=== PATIENT | female | born 1955 | race Two or more races ===

== ENCOUNTER 2018-04-15 10:57 | Observation (INO) | payer OTHER ==
--- NOTE | 2018-04-15 11:47 | PDOC ---
History of Present Illness - General Chief Complaint: Nausea/Vomiting Stated Complaint: NAUSEA/VOMITING Time Seen by Provider: 04/15/18 11:46 History Source: Patient Exam Limitations: No Limitations - History of Present Illness Initial Comments: 04/15/18 12:04 CHIEF COMPLAINT: Vomiting HISTORY OF PRESENT ILLNESS: This is a 62-year-old female with a history of non- insulin-dependent diabetes and psoriasis who presents complaining of sudden onset of vomiting, dizziness, and weakness since this morning. She reports that she was in her usual state of health and was seen for a checkup by her PCP on Thursday. All was well at that time and she received a flu vaccine. Today, she has vomited several times and feels dizzy, especially with change in position or standing. She has some headache which she describes as "something wrong in there" pointing to the front of her head. She denies fevers/chills, constipation /diarrhea, dysuria/hematuria, abdominal pain, and sick contacts. She traveled to [facility], returning 2 weeks ago. Vital signs on arrival are notable for heart rate of 98. PCP: Dr. Lucas REVIEW OF SYSTEMS: GENERAL/CONSTITUTIONAL: No fever or chills. Generalized weakness. No weight change. HEAD, EYES, EARS, NOSE AND THROAT: No change in vision. No ear pain or discharge. No sore throat. CARDIOVASCULAR: No chest pain or palpitations. RESPIRATORY: No cough, wheezing, or shortness of breath. GASTROINTESTINAL: Nausea/vomiting. No diarrhea or constipation. GENITOURINARY: No dysuria, frequency, or change in urination. MUSCULOSKELETAL: No joint or muscle swelling or pain. No neck or back pain. SKIN: No rash or easy bruising. NEUROLOGIC: Frontal headache, dizziness (room-spinning). No loss of consciousness or loss of sensation. PSYCHIATRIC: No depression or anxiety. ENDOCRINE: No increased thirst. No abnormal weight change. HEMATOLOGIC/LYMPHATIC: No anemia, easy bleeding, or history of blood clots. ALLERGIC/IMMUNOLOGIC: No hives or skin allergy. No latex allergy. PHYSICAL EXAM: GENERAL: The patient is awake, alert, and fully oriented. Actively vomiting. HEAD: Normal with no signs of trauma. ENT: Pupils equal, round and reactive to light, extraocular movements intact, sclera anicteric, conjunctiva clear. Neck supple. LUNGS: Clear to auscultation bilaterally. Normal excursion. No respiratory distress or use of accessory muscles. CV: RRR, S1/S2, no MRG. Cap refill < 2 sec. ABDOMEN: Soft, non-distended, non-tender. EXTREMITIES: Normal range of motion, no edema. NEUROLOGICAL: Normal speech, normal gait. CN II-XII grossly intact. Grossly negative [place], however patient had difficulty keeping eyes open during maneuver. PSYCH: Normal mood, normal affect. SKIN: Warm, dry, normal turgor, no rashes or lesions noted. Past History - Past Medical History Allergies/Adverse Reactions: Allergies Allergy/AdvReac Type Severity Reaction Status Date / Time No Known Allergies Allergy Verified 04/15/18 10:58 Home Medications: Ambulatory Orders Metformin HCl [Metformin HCl ER] 500 mg PO BID 04/15/18 COPD: No Diabetes: Yes - Immunization History Immunization Up to Date: Yes - Suicide/Smoking/Psychosocial Hx Smoking History: Never smoked *Physical Exam - Vital Signs Last Vital Signs Temp Pulse Resp BP Pulse Ox 97.7 F 98 H 18 154/94 100 04/15/18 10:58 04/15/18 10:58 04/15/18 10:58 04/15/18 10:58 04/15/18 10:58 Heart Score/ECG Review - ECG Intrepretation Comment:: 04/15/18 14:07 Normal sinus rhythm at 69 bpm; no ST or T wave abnormalities noted. ED Treatment Course - LABORATORY CBC & Chemistry Diagram: 04/15/18 11:55 04/15/18 11:55 Medical Decision Making - Medical Decision Making 04/15/18 12:07 A/P: 62-year-old female with nausea/vomiting, generalized weakness, and dizziness/vertigo symptoms. 1. EKG 2. Labs including CBC, CMP, cardiac profile, UA/culture 3. CT brain 4. Zofran 8 mg IV push 5. Normal saline 1 L bolus 6. Reevaluate 04/15/18 12:34 Labs notable for WBC 18.3. UA with 12 WBCs. Patient denies any urinary symptoms and doubt this is the sole cause of her symptoms, but will treat. Patient vomited again in CT. Given Reglan 10mg IVPB and Benadryl 12.5mg IVP. 04/15/18 15:38 Patient remains dizzy with nausea, although not actively vomiting. Will trial PO Meclizine. Given persistent symptoms, will request observation for MRI to r/o posterior circulation CVA as cause of symptoms. Discussed with Dr. Rushing who will consult. Recommends ASA, agrees with MRI. *DC/Admit/Observation/Transfer Diagnosis at time of Disposition: Dizziness Vomiting Qualifiers: Vomiting Intractability: unspecified Nausea presence: with nausea - Discharge Dispostion Condition at time of disposition: Guarded Decision to Admit order: Yes - Referrals - Patient Instructions - Post Discharge Activity
[2018-04-15] MEDS ORDERED: ONDANSETRON 4 MG/2 ML VIAL IVPUSH ONE (11:49)
[2018-04-15] MEDS ORDERED: SODIUM CHLORIDE 1,000 ML IV STA (11:50)
[2018-04-15] MEDS ORDERED: ONDANSETRON 4 MG/2 ML VIAL ONE ×2 (11:52→12:01)
[2018-04-15 12:12] LABS: BASO % 0.2 % (0-2.0); EOS % 0.2 % (0-4.5); HEMATOCRIT 43.5 % (32.4-45.2); HEMOGLOBIN 13.9 GM/dL (10.7-15.3); LYMPH % 10.3 % (8-40); MCH 28.8 pg (25.7-33.7); MEAN CELL VOLUME 89.9 fl (80-96); MEAN PLT VOLUME 7.8 fl (7.5-11.1); MONO % 2.5 % (3.8-10.2); NEUT % 86.8 % (42.8-82.8); PLATELET COUNT 387 K/MM3 (134-434); RBC 4.84 M/mm3 (3.60-5.2); RDW 13.5 % (11.6-15.6); WHITE BLOOD COUNT 18.3 K/mm3 (4.0-10.0)
[2018-04-15 12:48] LABS: ALBUMIN 4.3 g/dl (3.4-5.0); ALK PHOS 83 U/L (45-117); ANION GAP 13 MMOL/L (8-16); BILIRUBIN,TOTAL 0.5 mg/dL (0.2-1); BLOOD UREA NITROGEN 12 mg/dL (7-18); CALCIUM 9.8 mg/dL (8.5-10.1); CHLORIDE 106 mmol/L (98-107); CO2 22 mmol/L (21-32); CREATININE 0.7 mg/dL (0.55-1.3); GLUCOSE,RANDOM 144 mg/dL (74-106); POTASSIUM 3.9 mmol/L (3.5-5.1); SGOT/AST 29 U/L (15-37); SGPT/ALT 25 U/L (13-61); SODIUM 142 mmol/L (136-145); TOT PROT 8.2 g/dl (6.4-8.2)
[2018-04-15] MEDS ORDERED: METOCLOPRAMIDE HCL INJECTION 10 MG/2 ML VIAL IVPUSH ONE (14:00)
[2018-04-15] MEDS ORDERED: METOCLOPRAMIDE HCL INJECTION 10 MG/2 ML VIAL ONE (14:02)
[2018-04-15] MEDS ORDERED: MECLIZINE HCL 25 MG TABLET (FP) PO ONE (14:31)
[2018-04-15 14:43] LABS: URINE APPEARANCE CLEAR; URINE BILIRUBIN NEGATIVE (<2.0 mg/dL); URINE COLOR YELLOW; URINE GLUCOSE (UA) 1+ (NEGATIVE); URINE KETONE 2+ (NEGATIVE); URINE LEUK ESTERASE 2+ (NEGATIVE); URINE NITRITE NEGATIVE (NEGATIVE); URINE PROTEIN NEGATIVE (NEGATIVE); URINE UROBILINOGEN NEGATIVE mg/dL (0.2-1.0)
[2018-04-15 15:09] LABS: EPI CELLS RARE /HPF (FEW); URINE MUCUS RARE
[2018-04-15] MEDS ORDERED: MECLIZINE HCL 25 MG TABLET (FP) ONE (15:32)
[2018-04-15] MEDS ORDERED: CEFTRIAXONE 1 GM in DEXTROSE 5%-WATER - 100 ML IVPB ONE (15:33)
[2018-04-15] MEDS ORDERED: CEFTRIAXONE 1 GM/50 ML BAG ONE (15:35)
--- NOTE | 2018-04-15 15:36 | EKG ---
Test Reason : Blood Pressure : / mmHG Vent. Rate : 069 BPM Atrial Rate : 069 BPM P-R Int : 162 ms QRS Dur : 084 ms QT Int : 452 ms P-R-T Axes : 072 018 053 degrees QTc Int : 484 ms NORMAL SINUS RHYTHM CANNOT RULE OUT ANTERIOR INFARCT , AGE UNDETERMINED ABNORMAL ECG NO PREVIOUS ECGS AVAILABLE Confirmed by ALE SUNG MD ([id number]) on 04/15/2018 3:36:27 PM Referred By: Confirmed By:ALE SUNG MD
[2018-04-15] MEDS ORDERED: ASPIRIN 325 MG TABLET PO ONE (16:22)
[2018-04-15] MEDS ORDERED: ASPIRIN 325 MG TABLET ONE (16:49)
--- NOTE | 2018-04-15 18:39 | PN ---
Teaching Attending Note Name of Resident: Claritza Warren ATTENDING PHYSICIAN STATEMENT I saw and evaluated the patient. I reviewed the resident's note and discussed the case with the resident. I agree with the resident's findings and plan as documented with exceptions below. SUBJECTIVE: 62 yof with PMhx of NIDDM, psoriasis, had a flu vaccine on 04/13, yesterday reports having off and on 'funny feeling' in her head all day, today woke up well in her usual state of health, around 10 AM had multiple episodes of non bloody vomitus associated with funny feeling in her head. Denies any weakness, visual or speech disturbances. Symptoms fully resolved after medications in the ED, currently asymptomatic 12 point ROS done neg currently. No recent URI like illness or nausea, vomiting or decreased po intake. OBJECTIVE: Vital Signs Period Temp Pulse Resp BP Sys/Hodges Pulse Ox Last 24 Hr 97.7 F 75-98 -18 121-154/66-94 99-100 Intake & Output 04/12/18 04/13/18 04/14/18 04/15/18 23:59 23:59 23:59 23:59 Weight 125 lb GENERAL: Awake, alert, and fully oriented, in no acute distress. HEAD: Normal with no signs of trauma. EYES: Pupils equal, round and reactive to light, extraocular movements intact, sclera anicteric, conjunctiva clear. No lid lag. EARS, NOSE, THROAT: Ears normal, nares patent, oropharynx clear without exudates. Moist mucous membranes. NECK: Normal range of motion, supple without lymphadenopathy, JVD, or masses. LUNGS: Breath sounds equal, clear to auscultation bilaterally. No wheezes, and no crackles. No accessory muscle use. HEART: Regular rate and rhythm, normal S1 and S2 without murmur, rub or gallop. ABDOMEN: Soft, nontender, not distended, normoactive bowel sounds, no guarding, no rebound, no masses. No hepatomegaly or splenomegaly. MUSCULOSKELETAL: Normal range of motion at all joints. No bony deformities or tenderness. No CVA tenderness. UPPER EXTREMITIES: 2+ pulses, warm, well-perfused. No cyanosis. No clubbing. No peripheral edema. LOWER EXTREMITIES: 2+ pulses, warm, well-perfused. No calf tenderness. No peripheral edema. NEUROLOGICAL: Cranial nerves II-XII intact. Normal speech. Normal gait. AAOx3, PERRL, EOMI, power 5/5 sensation intact and symmetric to light touch, neg finger nose test, gait WNL, neg Rhomberg's sign, toes down going, DTR bilaterally symmetric PSYCHIATRIC: Cooperative. Good eye contact. Appropriate mood and affect. SKIN: Warm, dry, normal turgor, no rashes or lesions noted, normal capillary refill. Home Medications Medication Instructions Recorded Metformin HCl [Metformin HCl ER] 500 mg PO BID 04/15/18 Active Medications Enoxaparin Sodium (Lovenox -) 40 mg SQ DAILY J[facility] Laboratory Results - last 24 hr 04/15/18 04/15/18 04/15/18 11:55 11:55 14:22 WBC 18.3 H RBC 4.84 Hgb 13.9 Hct 43.5 MCV 89.9 MCH 28.8 MCHC 32.0 RDW 13.5 Plt Count 387 MPV 7.8 Absolute Neuts (auto) 15.9 H Neutrophils % 86.8 H Lymphocytes % 10.3 Monocytes % 2.5 L Eosinophils % 0.2 Basophils % 0.2 Nucleated RBC % 0 Sodium 142 Potassium 3.9 Chloride 106 Carbon Dioxide 22 Anion Gap 13 BUN 12 Creatinine 0.7 Creat Clearance w eGFR > 60 Random Glucose 144 H Calcium 9.8 Magnesium 2.0 Total Bilirubin 0.5 AST 29 ALT 25 Alkaline Phosphatase 83 Creatine Kinase 202 H Creatine Kinase Index 0.7 CK-MB (CK-2) 1.5 Troponin I < 0.02 Total Protein 8.2 Albumin 4.3 Urine Color Yellow Urine Appearance Clear Urine pH 6.0 Ur Specific [place] 1.015 Urine Protein Negative Urine Glucose (UA) 1+ H Urine Ketones 2+ H Urine Blood Negative Urine Nitrite Negative Urine Bilirubin Negative Urine Urobilinogen Negative Ur Leukocyte Esterase 2+ H Urine WBC (Auto) 12 Urine RBC (Auto) 1 Ur Epithelial Cells Rare Urine Mucus Rare CT brain - neg for acute process EKG NSR 69, T inversion in V1, no acute ST-T changes ASSESSMENT AND PLAN: 62 yof with acute onset of nausea, vomitting, ?vertigo/dizziness, now resolved. -Vomiting/?vertigo/?unsteady gait, BPPV, r/o posterior circulation TIA vs CVA -NIDDM -Psoriasis Plan; Symptoms fully resolved, neuro exam non concerning. Cannot r/o posterior circulation event. neurology consult. Neuro checks. MRI/MRA brain ASA/statin. Check lipid panel. Meclizine,reglan prn Gentle hydration PT eval. Hold metformin ISS, diabetic diet Dispo pending above w/u. d/c in 24 hours if no new concerns. Plan discussed with patient in detail, all questions answered. total admit time 55 min.
[2018-04-15] MEDS ORDERED: MECLIZINE HCL 25 MG TABLET (FP) PO PRN (19:19)
[2018-04-15] MEDS ORDERED: ACETAMINOPHEN 325 MG TABLET (FP) PO PRN (19:21)
[2018-04-15] MEDS ORDERED: SODIUM CHLORIDE 1,000 ML IV SCH (19:30)
[2018-04-15] MEDS ORDERED: ATORVASTATIN CA 40 MG TABLET (FP) PO ONE (19:30)
--- NOTE | 2018-04-15 20:17 | HP ---
CHIEF COMPLAINT: Vomiting, Dizziness PCP: Dr. Blackwell HISTORY OF PRESENT ILLNESS: 62 y/o F with PMHx of NIDDM, HLD and Psoriasis presents to [facility] after 8 episodes of Vomiting. Patient says this past Thursday (04/13) she received a flu shot at her PCPs office after which she started to feel something wasnt right in her head. She describes this feeling as a coming and going tingling sensation that spreads from the midline to approx. 2 inches laterally on the left side. This morning, she woke up and did her normal activities and at 10am, she vomited. Since then, she has had 8 episodes of NBNB vomiting prompting her to visit the ED. This is the first time she has had so many vomiting episodes all together. She additionally feels "Off balance" and Chills. Of Note, 2 weeks ago, she returned from a [facility] [place] [facility] she was complaining of some upper back pain that has resolved with motrin. She denies any recent trauma, medication changes, decreased PO intake, decreased urine output or sick contacts. Denies any fevers, chest pain, SOB, nausea vomiting, diarrhea, constipation. Patient works as a house keeper and denies any new cleaning chemicals or detergents. ER course was notable for: (1) Neurology Consult (2) MeclizineThomas Zofran (3) Head CT Recent Travel: PAST MEDICAL HISTORY: NIDDM HLD Psoriasis PAST SURGICAL HISTORY: Nodule removed in 2010 (Possibly thyroid or parathyroid for producing too much calcium as per patient) Cyst removal in 1987 Social History: Smoking: Denies Alcohol: Socially Drugs: Denies Family History: Father: DM, HLD, HTN Mother: DM, HLD, HTN Allergies No Known Allergies Allergy (Verified 04/15/18 10:58) HOME MEDICATIONS: Home Medications Medication Instructions Recorded Metformin HCl [Metformin HCl ER] 500 mg PO BID 04/15/18 REVIEW OF SYSTEMS Per HPI PHYSICAL EXAMINATION Vital Signs - 24 hr 04/15/18 04/15/18 04/15/18 10:58 14:27 16:33 Temperature 97.7 F Pulse Rate 98 H Pulse Rate [ 75 Right] Respiratory 18 17 Rate Blood Pressure 154/94 Blood Pressure 121/66 [Right Arm] O2 Sat by Pulse 100 99 99 Oximetry (%) GENERAL: A&Ox3, NAD HEAD: NCAT EYES: PERRL, EOMI, Wearing glasses EARS, NOSE, THROAT: Oropharynx clear without exudates. Moist mucous membranes. NECK: Normal ROM, No JVD LUNGS: Breath sounds equal, clear to auscultation bilaterally. No wheezes HEART: Regular rate and rhythm, normal S1 and S2 without murmur ABDOMEN: Soft, nontender, not distended, + bowel sounds, no guarding MUSCULOSKELETAL: Normal ROM at all joints. No CVA tenderness. EXTREMITIES: 2+ pulses, No calf tenderness. No peripheral edema. NEUROLOGICAL: Cranial nerves II-XII intact. Normal speech. Normal gait. 5/5 Muscle strength to UE Abduction, Elbow Flexion/extension, Hand hot bread baker, Hip Flexion /extension, Dorsiflexion, Plantarflexion. C5-T1 and L4-S1 Gross sensation intact b/l. Negative Finger to nose test, Negative heel to benedict, Negative Rombergs sign. 2+ Patellar reflex b/l. PSYCHIATRIC: Cooperative. Good eye contact. Appropriate mood and affect. SKIN: Warm, dry, no rashes or lesions noted, normal capillary refill. Laboratory Results - last 24 hr 04/15/18 04/15/18 04/15/18 11:55 11:55 14:22 WBC 18.3 H RBC 4.84 Hgb 13.9 Hct 43.5 MCV 89.9 MCH 28.8 MCHC 32.0 RDW 13.5 Plt Count 387 MPV 7.8 Absolute Neuts (auto) 15.9 H Neutrophils % 86.8 H Lymphocytes % 10.3 Monocytes % 2.5 L Eosinophils % 0.2 Basophils % 0.2 Nucleated RBC % 0 Sodium 142 Potassium 3.9 Chloride 106 Carbon Dioxide 22 Anion Gap 13 BUN 12 Creatinine 0.7 Creat Clearance w eGFR > 60 Random Glucose 144 H Calcium 9.8 Magnesium 2.0 Total Bilirubin 0.5 AST 29 ALT 25 Alkaline Phosphatase 83 Creatine Kinase 202 H Creatine Kinase Index 0.7 CK-MB (CK-2) 1.5 Troponin I < 0.02 Total Protein 8.2 Albumin 4.3 Urine Color Yellow Urine Appearance Clear Urine pH 6.0 Ur Specific [place] 1.015 Urine Protein Negative Urine Glucose (UA) 1+ H Urine Ketones 2+ H Urine Blood Negative Urine Nitrite Negative Urine Bilirubin Negative Urine Urobilinogen Negative Ur Leukocyte Esterase 2+ H Urine WBC (Auto) 12 Urine RBC (Auto) 1 Ur Epithelial Cells Rare Urine Mucus Rare Active Medications Acetaminophen (Tylenol -) 650 mg PO Q6H PRN PRN Reason: HEADACHE Aspirin (Asa -) 325 mg PO DAILY JOS[facility] Enoxaparin Sodium (Lovenox -) 40 mg SQ DAILY JOS[facility] Sodium Chloride (Normal Saline -) 1,000 mls @ 75 mls/hr IV ASDIR [facility] Insulin Aspart (Novolog Vial Sliding Scale -) 1 vial SQ ACHS [facility]; Protocol Meclizine HCl (Antivert -) 25 mg PO TID PRN PRN Reason: VERTIGO IMAGING: -Head CT Without contrast: Mild volume loss without evidence of acute intracranial pathology. ASSESSMENT/PLAN: 62 y/o F with PMHx of NIDDM, HLD and Psoriasis presents to [facility] after 8 episodes of Vomiting will be observed on Tele to r/o TIA 1. Vomiting + Dizziness -R/O TIA/CVA, Vertigo -Symptoms resolved during my interview after ED Course, Neurological exam unremarkable -Neurology (Dr. Peters) Consulted -Neurochecks Q4H -Head CT noted Above -Carotid Doppler, Echo, Brain MRI/MRA ordered -Lipid Panel, TSH ordered -Lipitor, ASA Ordered -Meclizine PRN for Vertigo -IV NS @ 75 mls/hr -Physical therapy requested 2. NIDDM -Hold Oral Hypoglycemics -ISS BGMs ACHS -A1c pending 3. FEN -IV NS @ 75 mls/hr -Lytes wnl -Low salt, low cholesterol, diabetic Diet 4. PPx -DVT: Lovenox SQ Daily Dispo: Tele Obs Visit type - Emergency Visit Emergency Visit: Yes ED Registration Date: 04/15/18 Care time: The patient presented to the Emergency Department on the above date and was hospitalized for further evaluation of their emergent condition. - New Patient This patient is new to me today: Yes Date on this admission: 04/15/18 - Critical Care Critical Care patient: No
[2018-04-15] MEDS: INSULIN SLIDING SCALE (NOVOLOG) 1 VIAL SQ SCH (21:27)
[2018-04-15] MEDS ORDERED: ATORVASTATIN CA 40 MG TABLET (FP) ONE ×2 (21:49→21:52)
[2018-04-15 23:19] VITALS: BMI 22.8
[2018-04-16] MEDS: INSULIN SLIDING SCALE (NOVOLOG) 1 VIAL SQ SCH ×2 (06:20→11:24)
[2018-04-16 07:08] LABS: BASO % 0.5 % (0-2.0); EOS % 0.8 % (0-4.5); HEMATOCRIT 35.2 % (32.4-45.2); HEMOGLOBIN 11.5 GM/dL (10.7-15.3); LYMPH % 21.5 % (8-40); MCHC 32.7 g/dl (32.0-36.0); MEAN CELL VOLUME 88.7 fl (80-96); MEAN PLT VOLUME 7.6 fl (7.5-11.1); MONO % 6.9 % (3.8-10.2); NEUT % 70.3 % (42.8-82.8); PLATELET COUNT 335 K/MM3 (134-434); RBC 3.97 M/mm3 (3.60-5.2); RDW 13.7 % (11.6-15.6); WHITE BLOOD COUNT 7.7 K/mm3 (4.0-10.0)
[2018-04-16 08:26] LABS: ALBUMIN 3.1 g/dl (3.4-5.0); ALK PHOS 58 U/L (45-117); ANION GAP 8 MMOL/L (8-16); BILIRUBIN,TOTAL 0.5 mg/dL (0.2-1); BLOOD UREA NITROGEN 12 mg/dL (7-18); CALCIUM 8.2 mg/dL (8.5-10.1); CHLORIDE 111 mmol/L (98-107); CO2 25 mmol/L (21-32); CREATININE 0.6 mg/dL (0.55-1.3); GLUCOSE,RANDOM 117 mg/dL (74-106); MAGNESIUM 2.2 mg/dL (1.8-2.4); PHOSPHOROUS 3.7 mg/dL (2.5-4.9); POTASSIUM 3.8 mmol/L (3.5-5.1); SGOT/AST 16 U/L (15-37); SGPT/ALT 19 U/L (13-61); SODIUM 143 mmol/L (136-145); TOT PROT 6.1 g/dl (6.4-8.2)
--- NOTE | 2018-04-16 09:12 | CONSULT ---
Consult - text type - Consultation Consultation Note: Neurology CHIEF COMPLAINT: Vomiting, Dizziness PCP: Dr. Blackwell HISTORY OF PRESENT ILLNESS: 62 y/o F with PMHx of NIDDM, HLD and Psoriasis presented to [facility] after multiple episodes of reported vomiting. Patient says this past Thursday (04/13) she received a flu shot at her PCPs office after which she started to feel something wasnt right in her head. She described intermittent tingling sensation that spreads from the midline to approx. 2 inches laterally on the left side. Morning of admission, she woke up and did her normal activities and at 10am, she vomited. After that, she has had 8 episodes of NBNB vomiting prompting her to visit the ED. She additionally felt "Off balance" and Chills. Of Note, 2 weeks ago, she returned from a 1 week trip to [facility] after which she was complaining of some upper back pain that has resolved with motrin. She denies any recent trauma, medication changes, decreased PO intake, decreased urine output or sick contacts. Denied any fevers, chest pain, SOB, nausea vomiting, diarrhea, constipation. She completed CT head which did not show acute changes. Carotid doppler completed and without HD significant stenosis. MRI brain completed awaiting report, does not appear to have infarct from my viewing. Patient reports feeling at baseline and much better with IV fluids overnight. No focal deficits noted. Recent Travel: PAST MEDICAL HISTORY: NIDDM HLD Psoriasis PAST SURGICAL HISTORY: Nodule removed in 2010 (Possibly thyroid or parathyroid for producing too much calcium as per patient) Cyst removal in 1987 Social History: Smoking: Denies Alcohol: Socially Drugs: Denies Family History: Father: DM, HLD, HTN Mother: DM, HLD, HTN Allergies No Known Allergies Allergy (Verified 04/15/18 10:58) HOME MEDICATIONS: Home Medications Medication Instructions Recorded Metformin HCl [Metformin HCl ER] 500 mg PO BID 04/15/18 REVIEW OF SYSTEMS Negative except Per HPI PHYSICAL EXAMINATION Vital Signs Period Temp Pulse Resp BP Sys/Hodges Pulse Ox Last 24 Hr 97.3 F-97.9 F 63-98 17-20 102-154/56-94 99-100 GENERAL: A&Ox3, NAD HEAD: NCAT EYES: PERRL, EOMI, Wearing glasses EARS, NOSE, THROAT: Oropharynx clear without exudates. Moist mucous membranes. NECK: Normal ROM, No JVD LUNGS: Breath sounds equal, clear to auscultation bilaterally. No wheezes HEART: Regular rate and rhythm, normal S1 and S2 without murmur ABDOMEN: Soft, nontender, not distended, + bowel sounds, no guarding MUSCULOSKELETAL: Normal ROM at all joints. No CVA tenderness. EXTREMITIES: 2+ pulses, No calf tenderness. No peripheral edema. NEUROLOGICAL: Cranial nerves II-XII intact. Normal speech, sensory intact, finger to nose normal, no dysmetria PSYCHIATRIC: Cooperative. Good eye contact. Appropriate mood and affect. SKIN: Warm, dry, no rashes or lesions noted, normal capillary refill. CBCD WBC 7.7 K/mm3 (4.0-10.0) 04/16/18 05:55 RBC 3.97 M/mm3 (3.60-5.2) 04/16/18 05:55 Hgb 11.5 GM/dL (10.7-15.3) 04/16/18 05:55 Hct 35.2 % (32.4-45.2) D 04/16/18 05:55 MCV 88.7 fl (80-96) 04/16/18 05:55 MCHC 32.7 g/dl (32.0-36.0) 04/16/18 05:55 RDW 13.7 % (11.6-15.6) 04/16/18 05:55 Plt Count 335 K/MM3 (134-434) 04/16/18 05:55 MPV 7.6 fl (7.5-11.1) 04/16/18 05:55 CMP Sodium 143 mmol/L (136-145) 04/16/18 05:55 Potassium 3.8 mmol/L (3.5-5.1) 04/16/18 05:55 Chloride 111 mmol/L (98-107) H 04/16/18 05:55 Carbon Dioxide 25 mmol/L (21-32) 04/16/18 05:55 Anion Gap 8 MMOL/L (8-16) 04/16/18 05:55 BUN 12 mg/dL (7-18) 04/16/18 05:55 Creatinine 0.6 mg/dL (0.55-1.3) 04/16/18 05:55 Creat Clearance w eGFR > 60 (>60) 04/16/18 05:55 Random Glucose 117 mg/dL (74-106) H 04/16/18 05:55 Calcium 8.2 mg/dL (8.5-10.1) L 04/16/18 05:55 Total Bilirubin 0.5 mg/dL (0.2-1) 04/16/18 05:55 AST 16 U/L (15-37) 04/16/18 05:55 ALT 19 U/L (13-61) 04/16/18 05:55 Alkaline Phosphatase 58 U/L (45-117) 04/16/18 05:55 Total Protein 6.1 g/dl (6.4-8.2) L 04/16/18 05:55 Albumin 3.1 g/dl (3.4-5.0) L 04/16/18 05:55 CARDIAC ENZYMES Creatine Kinase 202 IU/L (26-192) H 04/15/18 11:55 Troponin I < 0.02 ng/ml (0.00-0.05) 04/15/18 11:55 Active Medications Acetaminophen (Tylenol -) 650 mg PO Q6H PRN PRN Reason: HEADACHE Aspirin (Asa -) 325 mg PO DAILY [facility] Atorvastatin Calcium (Lipitor -) 40 mg PO HS JOSH Enoxaparin Sodium (Lovenox -) 40 mg SQ DAILY [facility] Sodium Chloride (Normal Saline -) 1,000 mls @ 75 mls/hr IV ASDIR [facility] Last Admin: 04/15/18 21:50 Dose: 75 mls/hr Ceftriaxone Sodium 1 gm/ (Dextrose) 100 mls @ 200 mls/hr IVPB DAILY [facility]; Protocol Insulin Aspart (Novolog Vial Sliding Scale -) 1 vial SQ ACHS [facility]; Protocol Last Admin: 04/16/18 06:20 Dose: Not Given Meclizine HCl (Antivert -) 25 mg PO TID PRN PRN Reason: VERTIGO IMAGING: -Head CT, Carotid Doppler, MRI brain as above ASSESSMENT/PLAN: 62 y/o F with PMHx of NIDDM, HLD and Psoriasis presented to [facility] after multiple episodes of reported vomiting. Symptoms resolved, imaging negative. Improved with hydration and meclezine, can be given as needed. Monitor for official MRI report. Avoid sudden head movements. Continue hydration. Monitor glucose, maintain euglycemic range. LDL 65, does not need to be Statin. Would recommend daily ASA 81mg for CVA protection. Otherwise, likely stable for discharge.
[2018-04-16] MEDS ORDERED: ENOXAPARIN NA (PORCINE) 40 MG/0.4 ML DISP.SYRIN SQ SCH (10:00)
[2018-04-16] MEDS ORDERED: CEFTRIAXONE 1 GM in DEXTROSE 5%-WATER - 50 ML IVPB SCH (10:00)
[2018-04-16] MEDS ORDERED: ASPIRIN 325 MG TABLET PO SCH (10:00)
[2018-04-16] MEDS ORDERED: DEXTROSE 5%-WATER - 50 ML IVPB ONE (10:57)
[2018-04-16] MEDS ORDERED: cefTRIAXone SODIUM 1 GM VIAL ONE (10:57)
--- NOTE | 2018-04-16 12:21 | PN ---
Teaching Attending Note Name of Resident: Claritza Warren ATTENDING PHYSICIAN STATEMENT I saw and evaluated the patient. I reviewed the resident's note and discussed the case with the resident. I agree with the resident's findings and plan as documented with exceptions below SUBJECTIVE: Patient seen and examined, no complaints. Denies any abdominal or urinary symptoms prior to admission or during the stay. no back pain or abdominal pain. No recurrence of symptoms, has been doing well. OBJECTIVE: Vital Signs Period Temp Pulse Resp BP Sys/Hodges Pulse Ox Last 24 Hr 97.3 F-97.9 F 63-75 17-20 102-139/56-66 99-99 Intake & Output 04/13/18 04/14/18 04/15/18 04/16/18 23:59 23:59 23:59 23:59 Intake Total 205 895 Balance 205 895 Weight 117 lb General: sitting in bed in no acute distress neuro: unchanged, non focal exam, neg cerebellar signs including finger nose, normal gait, neg romberg's Home Medications Medication Instructions Recorded Apremilast [Otezla] 1 each PO DAILY 04/15/18 Atorvastatin Ca [Lipitor] 40 mg PO HS 04/15/18 Metformin HCl [Metformin HCl ER] 500 mg PO BID 04/15/18 Active Medications Acetaminophen (Tylenol -) 650 mg PO Q6H PRN PRN Reason: HEADACHE Aspirin (Asa -) 325 mg PO DAILY [facility] Last Admin: 04/16/18 09:22 Dose: 325 mg Atorvastatin Calcium (Lipitor -) 40 mg PO HS [facility] Enoxaparin Sodium (Lovenox -) 40 mg SQ DAILY [facility] Last Admin: 04/16/18 09:22 Dose: 40 mg Sodium Chloride (Normal Saline -) 1,000 mls @ 75 mls/hr IV ASDIR JOSH Last Admin: 04/15/18 21:50 Dose: 75 mls/hr Ceftriaxone Sodium 1 gm/ (Dextrose) 50 mls @ 200 mls/hr IVPB DAILY [facility]; Protocol Last Admin: 04/16/18 11:24 Dose: 200 mls/hr Insulin Aspart (Novolog Vial Sliding Scale -) 1 vial SQ ACHS [facility]; Protocol Last Admin: 04/16/18 11:24 Dose: 2 unit Meclizine HCl (Antivert -) 25 mg PO TID PRN PRN Reason: VERTIGO Laboratory Results - last 24 hr 04/15/18 04/15/18 04/15/18 11:55 14:22 21:10 WBC RBC Hgb Hct MCV MCH MCHC RDW Plt Count MPV Absolute Neuts (auto) Neutrophils % Lymphocytes % Monocytes % Eosinophils % Basophils % Nucleated RBC % Sodium 142 Potassium 3.9 Chloride 106 Carbon Dioxide 22 Anion Gap 13 BUN 12 Creatinine 0.7 Creat Clearance w eGFR > 60 POC Glucometer 150.03377 Random Glucose 144 H Hemoglobin A1c % Calcium 9.8 Phosphorus Magnesium 2.0 Total Bilirubin 0.5 AST 29 ALT 25 Alkaline Phosphatase 83 Creatine Kinase 202 H Creatine Kinase Index 0.7 CK-MB (CK-2) 1.5 Troponin I < 0.02 Total Protein 8.2 Albumin 4.3 Triglycerides Cholesterol Total LDL Cholesterol HDL Cholesterol TSH Urine Color Yellow Urine Appearance Clear Urine pH 6.0 Ur Specific [place] 1.015 Urine Protein Negative Urine Glucose (UA) 1+ H Urine Ketones 2+ H Urine Blood Negative Urine Nitrite Negative Urine Bilirubin Negative Urine Urobilinogen Negative Ur Leukocyte Esterase 2+ H Urine WBC (Auto) 12 Urine RBC (Auto) 1 Ur Epithelial Cells Rare Urine Mucus Rare 04/16/18 04/16/18 04/16/18 05:15 05:55 05:55 WBC RBC Hgb Hct MCV MCH MCHC RDW Plt Count MPV Absolute Neuts (auto) Neutrophils % Lymphocytes % Monocytes % Eosinophils % Basophils % Nucleated RBC % Sodium Potassium Chloride Carbon Dioxide Anion Gap BUN Creatinine Creat Clearance w eGFR POC Glucometer 127 Random Glucose Hemoglobin A1c % 6.9 H Calcium Phosphorus Magnesium Total Bilirubin AST ALT Alkaline Phosphatase Creatine Kinase Creatine Kinase Index CK-MB (CK-2) Troponin I Total Protein Albumin Triglycerides 97 Cholesterol 138 Total LDL Cholesterol 65 HDL Cholesterol 72 H TSH 2.73 Urine Color Urine Appearance Urine pH Ur Specific [place] Urine Protein Urine Glucose (UA) Urine Ketones Urine Blood Urine Nitrite Urine Bilirubin Urine Urobilinogen Ur Leukocyte Esterase Urine WBC (Auto) Urine RBC (Auto) Ur Epithelial Cells Urine Mucus 04/16/18 04/16/18 04/16/18 05:55 05:55 11:23 WBC 7.7 RBC 3.97 Hgb 11.5 Hct 35.2 D MCV 88.7 MCH 29.0 MCHC 32.7 RDW 13.7 Plt Count 335 MPV 7.6 Absolute Neuts (auto) 5.4 Neutrophils % 70.3 Lymphocytes % 21.5 D Monocytes % 6.9 D Eosinophils % 0.8 D Basophils % 0.5 Nucleated RBC % 0 Sodium 143 Potassium 3.8 Chloride 111 H Carbon Dioxide 25 Anion Gap 8 BUN 12 Creatinine 0.6 Creat Clearance w eGFR > 60 POC Glucometer 170 Random Glucose 117 H Hemoglobin A1c % Calcium 8.2 L Phosphorus 3.7 Magnesium 2.2 Total Bilirubin 0.5 AST 16 ALT 19 Alkaline Phosphatase 58 Creatine Kinase Creatine Kinase Index CK-MB (CK-2) Troponin I Total Protein 6.1 L Albumin 3.1 L Triglycerides Cholesterol Total LDL Cholesterol HDL Cholesterol TSH Urine Color Urine Appearance Urine pH Ur Specific [place] Urine Protein Urine Glucose (UA) Urine Ketones Urine Blood Urine Nitrite Urine Bilirubin Urine Urobilinogen Ur Leukocyte Esterase Urine WBC (Auto) Urine RBC (Auto) Ur Epithelial Cells Urine Mucus MRI brain results noted 2D echo with no concerns Carotid duplex noted ASSESSMENT AND PLAN: 62 yof with acute onset of nausea, vomitting, ?vertigo/dizziness, now resolved. -Vomiting/dizziness, BPPV in the setting of recent flu vaccination -Asymptomatic bacteruria -NIDDM -Psoriasis Plan; Asymptomatic, no concerns overnight. No abdominal or urinary symptoms, 2 doses of ceftriaxone. Urine cultures noted, patient asymptomatic, no indication to treat further. MRI brain/2D echo/carotid US results noted Telemetry uneventful. Hold metformin for 48 hours, then resume if no concerns. Dispo d/c home today with outpatient PCP follow up Plan discussed with patient in detail, all questions answered.
--- NOTE | 2018-04-16 13:46 | DS ---
Physical Exam: SUBJECTIVE: Patient seen and examined this morning. No new complaints. No longer experiences nausea, vomiting or dizziness. No acute overnight events as per nursing. Denies fevers, chills, chest pain, SOB, diarrhea, abdominal pain, dysuria, hematuria. OBJECTIVE: Vital Signs Period Temp Pulse Resp BP Sys/Hodges Pulse Ox Last 24 Hr 97.3 F-97.9 F 63-75 17-20 102-139/56-66 99-99 PHYSICAL EXAM GENERAL: A&Ox3, NAD HEAD: NCAT EYES: PERRL, EOMI, Wearing glasses ENT: Oropharynx clear without exudates. Moist mucous membranes. NECK: Normal ROM, No JVD LUNGS: Breath sounds equal, clear to auscultation bilaterally. No wheezes HEART: Regular rate and rhythm, normal S1 and S2 without murmur ABDOMEN: Soft, nontender, not distended, + bowel sounds, no guarding EXTREMITIES: 2+ pulses, No peripheral edema. NEUROLOGICAL: Cranial nerves II-XII intact. Normal speech. Normal gait. 5/5 Muscle strength to UE Abduction, Elbow Flexion/extension, Hand concession stand attendant, Hip Flexion /extension, Dorsiflexion, Plantarflexion. C5-T1 and L4-S1 Gross sensation intact b/l. 2+ Patellar reflex b/l. SKIN: Warm, dry, no rashes or lesions noted. LABS Laboratory Results - last 24 hr 04/15/18 04/15/18 04/16/18 14:22 21:10 05:15 WBC RBC Hgb Hct MCV MCH MCHC RDW Plt Count MPV Absolute Neuts (auto) Neutrophils % Lymphocytes % Monocytes % Eosinophils % Basophils % Nucleated RBC % Sodium Potassium Chloride Carbon Dioxide Anion Gap BUN Creatinine Creat Clearance w eGFR POC Glucometer 150.48713 127 Random Glucose Hemoglobin A1c % Calcium Phosphorus Magnesium Total Bilirubin AST ALT Alkaline Phosphatase Total Protein Albumin Triglycerides Cholesterol Total LDL Cholesterol HDL Cholesterol TSH Urine Color Yellow Urine Appearance Clear Urine pH 6.0 Ur Specific [place] 1.015 Urine Protein Negative Urine Glucose (UA) 1+ H Urine Ketones 2+ H Urine Blood Negative Urine Nitrite Negative Urine Bilirubin Negative Urine Urobilinogen Negative Ur Leukocyte Esterase 2+ H Urine WBC (Auto) 12 Urine RBC (Auto) 1 Ur Epithelial Cells Rare Urine Mucus Rare 04/16/18 04/16/18 04/16/18 05:55 05:55 05:55 WBC 7.7 RBC 3.97 Hgb 11.5 Hct 35.2 D MCV 88.7 MCH 29.0 MCHC 32.7 RDW 13.7 Plt Count 335 MPV 7.6 Absolute Neuts (auto) 5.4 Neutrophils % 70.3 Lymphocytes % 21.5 D Monocytes % 6.9 D Eosinophils % 0.8 D Basophils % 0.5 Nucleated RBC % 0 Sodium Potassium Chloride Carbon Dioxide Anion Gap BUN Creatinine Creat Clearance w eGFR POC Glucometer Random Glucose Hemoglobin A1c % 6.9 H Calcium Phosphorus Magnesium Total Bilirubin AST ALT Alkaline Phosphatase Total Protein Albumin Triglycerides 97 Cholesterol 138 Total LDL Cholesterol 65 HDL Cholesterol 72 H TSH 2.73 Urine Color Urine Appearance Urine pH Ur Specific [place] Urine Protein Urine Glucose (UA) Urine Ketones Urine Blood Urine Nitrite Urine Bilirubin Urine Urobilinogen Ur Leukocyte Esterase Urine WBC (Auto) Urine RBC (Auto) Ur Epithelial Cells Urine Mucus 04/16/18 04/16/18 05:55 11:23 WBC RBC Hgb Hct MCV MCH MCHC RDW Plt Count MPV Absolute Neuts (auto) Neutrophils % Lymphocytes % Monocytes % Eosinophils % Basophils % Nucleated RBC % Sodium 143 Potassium 3.8 Chloride 111 H Carbon Dioxide 25 Anion Gap 8 BUN 12 Creatinine 0.6 Creat Clearance w eGFR > 60 POC Glucometer 170 Random Glucose 117 H Hemoglobin A1c % Calcium 8.2 L Phosphorus 3.7 Magnesium 2.2 Total Bilirubin 0.5 AST 16 ALT 19 Alkaline Phosphatase 58 Total Protein 6.1 L Albumin 3.1 L Triglycerides Cholesterol Total LDL Cholesterol HDL Cholesterol TSH Urine Color Urine Appearance Urine pH Ur Specific [place] Urine Protein Urine Glucose (UA) Urine Ketones Urine Blood Urine Nitrite Urine Bilirubin Urine Urobilinogen Ur Leukocyte Esterase Urine WBC (Auto) Urine RBC (Auto) Ur Epithelial Cells Urine Mucus Microbiology 04/15/18 14:22 Urine - Urine Clean Catch Urine Culture - Preliminary Lactose Fermenting Neg Bacilli IMAGING: -CT Head without contrast: Mild volume loss without evidence of acute intracranial pathology. Correlate clinically to determine further evaluation and follow-up. -MRI Brain W/WO contrast: Normal MRI of the brain. There is no evidence of abnormal restricted diffusion in the brain to suggest acute or subacute infarction. Following intravenous infusion with gadolinium, no blood brain barrier defect, or abnormal focus of enhancement is seen -US Carotid doppler: There is mild intimal thickening in the distal common carotid artery and at the bifurcation, bilaterally without evidence of hemodynamically significant stenosis. -ECHO: LVEF 55-60%, LV Systolic function is normal. Mild MR, TR. No pericardial effusion. HOSPITAL COURSE: Date of Admission:04/15/18 Date of Discharge: 04/16/18 62 y/o F with PMHx of NIDDM, HLD and Psoriasis presented to [facility] after 8 episodes of Vomiting accompanied by dizziness and was observed on Tele to r/o TIA. Imaging (noted above) did not find any acute pathology. Echo revealed Normal LVEF. Lipid panel and TSH were WNL. Patient was hydrated, given meclizine and her symptoms resolved. Neurology was consulted and recommended avoiding sudden head movements, hydration, and starting daily Aspirin 81mg. Her A1c was elevated at 6.9% and patient was told to follow up with her PCP regarding further management. Her Urine cultures were positive (noted above) and patient did not complain of any sx's including abdominal pain, dysuria or hematuria. She completed a 2 day course of Ceftriaxone. Patient was discharged home with strict instructions to follow up with her PCP. Additionally, she was given instruction not to use her home dose metformin for 48hours after discharge. Minutes to complete discharge: 40 Discharge Summary Reason For Visit: STROKE Current Active Problems Dizziness (Acute) Vomiting (Acute) Condition: Improved - Instructions Diet, Activity, Other Instructions: You came to the hospital after experiencing some dizziness and vomiting. Your symptoms have resolved with hydration and Meclizine. We are discharging you on some meclizine to take as needed if you have repeat symptoms. Imaging was done that did not reveal any acute pathology. You were seen by a neurologist who recommends you avoid sudden head movements, Continue hydration, and start daily Aspirin 81mg for stroke protection. DO TAKE METFORMIN FOR 48 HOURS AFTER GOING HOME. In the interim, recommend blood sugar checks before meals and at bedtime and notify your doctor if persistently > 200 noted. Resume metformin on Thursday. Please continue to drink water in the mean time. if you notice any urinary burning, frequency, urgency, belly or back pain, fevers or chills, come to ED or call your doctor rightaway. One of your Blood glucose tests (Hemoglobin A1c) was elevated. Please follow up with your primary doctor in 1 week to further manage this number as you may need to change your diabetes medications. Please follow up with your primary care physician in one week. Continue all your other medications as prescribed Please call 911 or return to the ER if you have any signs or symptoms of chest pain, shortness of breath, uncontrollable fever, chills, nausea, vomiting, numbness, tingling, or weakness in any part of your body, changes in vision, or slurred speech. Please return to the ER if symptoms persist, worsen, or new symptoms arise. Disposition: HOME - Home Medications Comprehensive Discharge Medication List: Ambulatory Orders Apremilast [Otezla] 1 each PO DAILY 04/15/18 Atorvastatin Ca [Lipitor] 40 mg PO HS 04/15/18 Metformin HCl [Metformin HCl ER] 500 mg PO BID 04/15/18 Aspirin [ASA -] 81 mg PO DAILY #30 tab.chew 04/16/18 Meclizine HCl [Antivert -] 25 mg PO DAILY PRN #6 tablet 04/16/18 This patient is new to me today: No Emergency Visit: Yes ED Registration Date: 04/15/18 Care time: The patient presented to the Emergency Department on the above date and was hospitalized for further evaluation of their emergent condition. Critical Care patient: No - Discharge Referral Referred to [facility] Med [facility].: No
[2018-04-16 14:25] VITALS: BP 134/73; PULSE 74; TEMP 98.8
[2018-04-16] MEDS ORDERED: ATORVASTATIN CA 40 MG TABLET (FP) PO SCH (22:00)
== END 2018-04-16 15:13 | disposition home or self-care (01) ==
LOC: JER 10:57 → JERBED 15:45 → J4S 23:15
PROVIDERS: ADMIT Hospitalist; ATTEND Hospitalist
PROC: 3E03329 Introduction of Other Anti-infective into Peripheral Vein, Percutaneous Approach (ICD-10-PCS; principal; 2018-04-15)
PROC: 3E033GC Introduction of Other Therapeutic Substance into Peripheral Vein, Percutaneous Approach (ICD-10-PCS; 2018-04-15)
PROC: 3E013VG Introduction of Insulin into Subcutaneous Tissue, Percutaneous Approach (ICD-10-PCS; 2018-04-15)
PROC: 3E013GC Introduction of Other Therapeutic Substance into Subcutaneous Tissue, Percutaneous Approach (ICD-10-PCS; 2018-04-15)
DX: R11.2 Nausea with vomiting, unspecified (principal); R42 Dizziness and giddiness; E11.9 Type 2 diabetes mellitus without complications; R82.71 Bacteriuria; L40.9 Psoriasis, unspecified; Z79.84 Long term (current) use of oral hypoglycemic drugs
CPT/HCPCS: 36415; 70450-TC; 70553-TC; 80053; 80061; 81003; 81015; 82550; 82553; 82962; 83036; 83721; 83735; 84100; 84443; 84484; 85025; 87086; 87186; 93005; 93010; 93306-TC; 93880-TC; 97116-GP; 97161-GP; 99285-25; G0378; J7030

== ENCOUNTER 2021-12-10 09:35 | Emergency (ER) | payer OTHER ==
[2021-12-10 09:57] VITALS: BP 145/81; PULSE 82; TEMP 97.9; BMI 21.9
[2021-12-10 11:47] LABS: BASO % 0.5 % (0-2.0); EOS % 0.1 % (0-4.5); HEMATOCRIT 39.4 % (32.4-45.2); LYMPH % 19.9 % (8-40); MCH 27.6 pg (25.7-33.7); MEAN CELL VOLUME 83.7 fl (80-96); MEAN PLT VOLUME 7.5 fl (7.5-11.1); MONO % 3.5 % (3.8-10.2); PLATELET COUNT 455 10^3/uL (134-434); RBC 4.71 M/mm3 (3.60-5.2); RDW 15.1 % (11.6-15.6); WHITE BLOOD COUNT 7.8 K/mm3 (4.0-10.0)
[2021-12-10 11:52] LABS: URINE APPEARANCE CLEAR; URINE BILIRUBIN NEGATIVE (NEGATIVE); URINE COLOR YELLOW; URINE GLUCOSE (UA) NEGATIVE (NEGATIVE); URINE KETONE NEGATIVE (NEGATIVE); URINE LEUK ESTERASE NEGATIVE (NEGATIVE); URINE NITRITE NEGATIVE (NEGATIVE); URINE PROTEIN NEGATIVE (NEGATIVE); URINE UROBILINOGEN 0.2 mg/dL (0.2-1.0)
[2021-12-10 12:11] LABS: ALBUMIN 3.9 g/dl (3.4-5.0); BLOOD UREA NITROGEN 8.8 mg/dL (7-18); CALCIUM 9.7 mg/dL (8.5-10.1)
[2021-12-10 12:14] LABS: CREATININE 0.6 mg/dL (0.55-1.3)
[2021-12-10 12:16] LABS: BILIRUBIN,TOTAL 0.5 mg/dL (0.2-1); TOT PROT 8.1 g/dl (6.4-8.2)
== END 2021-12-10 13:39 | disposition home or self-care (01) ==
LOC: JERFT 09:35
DX: M79.89 Other specified soft tissue disorders (principal); B02.9 Zoster without complications
CPT/HCPCS: 36415; 74176-TC; 80053; 81003; 83690; 85025; 87086; 99284-25